=== PATIENT | male | born 1945 | race Caucasian/White ===

== ENCOUNTER → 2018-04-02 | Outpatient (CLI) | payer MEDICARE, OTHER ==
[~2018-04-02] MED LIST: ALEN70TA43 PO; AMOX1TAB11 PO; ASPI-715 PO; ASPI-757 PO; ASPIRN; CALC500T6 PO; CARDURA; CHOL10005 PO; DILT-106 PO; DILT120T13 PO; DOXA4TAB57 PO; TOBDOO OS; VIT-7 PO; [UNRECOGNIZED DRUG - CODE] PO
== END ==
LOC: US 00:51
PROVIDERS: ATTEND Internal Medicine Clinical Cardiac Electrophysiology
DX: I35.8 Other nonrheumatic aortic valve disorders (principal); I35.1 Nonrheumatic aortic (valve) insufficiency; I71.2 Thoracic aortic aneurysm, without rupture
CPT/HCPCS: 93306